=== PATIENT | male | born 1980 | race Caucasian/White ===

== ENCOUNTER 2025-01-24 05:56 | Day surgery (SDC) | payer BC ==
[2025-01-19 13:38] VITALS: BMI 31.8
[2025-01-24] MEDS ORDERED: PROPOFOL 20 ML ONE (06:52)
[2025-01-24] MEDS ORDERED: Ondansetron PF 4 MG/2 ML Vial ONE (06:54)
[2025-01-24] MEDS ORDERED: Bupivacaine/Epinephrine 0.25% 30 ML VIAL ONE ×2 (06:54→07:45)
[2025-01-24] MEDS ORDERED: Rocuronium Bromide 10 MG/ML (10ML VIAL) ONE (06:54)
[2025-01-24] MEDS ORDERED: CEFAZOLIN 2 GM VIAL ONE (07:14)
[2025-01-24] MEDS ORDERED: SUGAMMADEX SODIUM 200 MG/2 ML VIAL ONE (07:58)
[2025-01-24] MEDS ORDERED: Ketorolac Tromethamine 30 MG (1 mL) VIAL ONE (07:58)
[2025-01-24] MEDS ORDERED: Bupivacaine HCl 0.5%/Epinephrine 1:200,000/PF 30 ml Vial ONE (08:00)
[2025-01-24] MEDS ORDERED: HYDROcodone/Acetaminophen 5/325 mg Tablet ONE (09:38)
== END 2025-01-24 10:00 | disposition home or self-care (01) ==
LOC: CSHSDC 05:56
PROVIDERS: ATTEND Surgery
PROC: 0YU64JZ Supplement Left Inguinal Region with Synthetic Substitute, Percutaneous Endoscopic Approach (ICD-10-PCS; principal; 2025-01-24)
DX: K40.90 Unilateral inguinal hernia, without obstruction or gangrene, not specified as recurrent (principal)
CPT/HCPCS: C1781; J1100; J1885; J2250; J2405; J2704; J3010; S2900